=== PATIENT | female | born 1940 | race Caucasian/White ===

== ENCOUNTER 2017-02-17 14:56 | Emergency (ER) | payer OTHER ==
--- NOTE | 2017-02-17 15:11 | Emergency Department Record ---
History of Present Illness - General Chief complaint: Extremity Problem Stated complaint: SWOLLEN,PAINFUL,WARM SPOT L CALF Time Seen by Provider: 02/17/17 15:06 Source: Patient Mode of Arrival: Ambulatory Limitations: No limitations - History of Present Illness Initial comments: 76 yo female presents with left lower leg tenderness and swelling for a couple days. There is warmth and redness as well. She denies and injury. No fevers. No history of recent trauma. No history of DVT or PE. She does have chronic swelling of the legs. No cough, chest pain or shortness of breath. MD Complaint: Extremity pain, Extremity swelling -: Days(s) (2) Location: Left -: Yes Myalgia Radiation: Proximal (calf), Distal Quality: Aching Consistency: Constant Improves with: Nothing Worsens with: Palpation, Weight bearing Associated Symptoms: Denies other symptoms - Related Data Home Medications Medication Instructions Recorded Confirmed Last Taken Amlodipine Besylate 2.5 mg PO DAILY 02/17/17 02/17/17 1 Day Ago ~02/16/17 Calcium Carbonate/Vitamin D3 2 each PO DAILY 02/17/17 02/17/17 1 Day Ago [Calcium 600-Vit D3 500 Softgel] ~02/16/17 Candesartan/Hydrochlorothiazid 1 each PO DAILY 02/17/17 02/17/17 1 Day Ago [Atacand Hct 32-12.5 mg Tab] ~02/16/17 Cholecalciferol (Vitamin D3) 5,000 unit PO DAILY 02/17/17 02/17/17 1 Day Ago [Vitamin D3] ~02/16/17 Fluticasone Propionate [Flonase] 2 spray EACH NARES DAILY 02/17/17 02/17/17 1 Day Ago ~02/16/17 Levothyroxine Sodium [Synthroid] 125 mcg PO DAILY 02/17/17 02/17/17 1 Day Ago ~02/16/17 Multivit-Min/Iron Fum/Folic AC 1 each PO DAILY 02/17/17 02/17/17 1 Day Ago [Yirom-Asbplzy-Ugtxuwyf Tablet] ~02/16/17 Previous Rx's Medication Instructions Recorded Cephalexin [Keflex] 500 mg PO QID #28 cap 02/17/17 Allergies Allergy/AdvReac Type Severity Reaction Status Date / Time codeine Allergy VOMITING Verified 02/17/17 15:12 Physical Exam - General General Appearance: Alert, Oriented x3, Cooperative, No acute distress Limitations: No limitations - Head Head exam: Atraumatic, Normocephalic, Normal inspection - Eye Eye exam: Normal appearance. negative: Conjunctival injection, Periorbital swelling - ENT ENT exam: Normal exam, Mucous membranes moist Ear exam: Normal external inspection Nasal Exam: Normal inspection Mouth exam: Normal external inspection - Neck Neck exam: Normal inspection, Full ROM. negative: Tenderness - Respiratory Respiratory exam: Normal lung sounds bilaterally. negative: Respiratory distress - Cardiovascular Cardiovascular Exam: Regular rate, Normal rhythm, Normal heart sounds - GI/Abdominal GI/Abdominal exam: Soft. negative: Tenderness - Rectal Rectal exam: Deferred - exam: Deferred - Extremities Extremities exam: Calf tenderness, Full ROM, Normal capillary refill, Pedal edema, Tenderness. negative: Normal inspection Image of Full Body: 1 - bilateral swellng that is symmetric, left is warm with mild erythema - Back Back exam: Reports: Normal inspection - Neurological Neurological exam: Alert, Oriented X3 - Psychiatric Psychiatric exam: Normal affect, Normal mood - Skin Skin exam: Dry, Intact, Normal color, Warm Course - Reevaluation(s) Reevaluation #1: 02/17/17 16:02 The labs were reviewed No acute changes on the CBC or CMP. 02/17/17 18:11 The US was read NO DVT of the Lower Extremity Superfical thrombosis noted of the medial calf Medical Decision Making - Lab Data Result diagrams: 02/17/17 15:30 02/17/17 15:30 Disposition Disposition: Discharge Clinical Impression: Superficial thrombophlebitis Qualifiers: Superficial thrombophlebitis-Involved body area: lower extremity Laterality: left Qualified Code(s): I80.02 - Phlebitis and thrombophlebitis of superficial vessels of left lower extremity Disposition: Home, Self-Care Condition: (1) Good Instructions: Superficial Thrombophlebitis (ED) Additional Instructions: You will need to elevate your leg Use a compression stocking Take an anti-inflammatory such as Advil every 6 hours Use warm compresses every 4 hours to stimulate healing and good blood flow Return or see your Doctor Monday for a recheck of your symptoms. Return sooner if worse Keflex every 6 hours as well Prescriptions: Cephalexin [Keflex] 500 mg PO QID #28 cap Referrals: ANDREW CHAN D.O. [DOCTOR OF OSTEOPATH] - [facility] [Provider Group] Forms: Patient Portal Access Time of Disposition: 18:13 Quality - Quality Measures Quality Measures: N/A - Blood Pressure Screening Does Patient Have Any of the Following: No Blood Pressure Classification: Hypertensive Reading Systolic Measurement: 151 Diastolic Measurement: 96 Screening for High Blood Pressure: < Pre-Hypertensive BP, F/U Documented > [ [id number]] Pre-Hypertensive Follow-up Interventions: Referral to alternative/primary care provider.
[2017-02-17 15:41] LABS: BASO % 0.7 % (0-6); EOS % 1.3 % (0-6); GRAN % 72.5 % (47-80); HEMATOCRIT 43.7 % (35.0-47.0); LYMPH % 17.3 % (16-45); MEAN CELL VOLUME 86.7 fl (81-97); MEAN CORPUSCULAR HEMOGLOBIN 27.8 pg (27-33); MEAN PLATELET VOLUME 10.3 fl (7.4-10.4); MONO % 8.2 % (0-9); PLATELET COUNT 342 K/uL (130-400); RED BLOOD COUNT 5.04 M/uL (3.80-5.40); RED CELL DISTRIBUTION WIDTH 14.9 % (11.5-14.5); WHITE BLOOD COUNT W/O DIFF 11.1 K/uL (4.2-12.2)
[2017-02-17 15:52] LABS: INR 0.96; PROTHROMBIN TIME (PATIENT) 10.4 SECONDS (9.5-12.1)
[2017-02-17 15:58] LABS: ALB/GLOB RATIO 1.2 (1.1-1.8); ALBUMIN 4.1 g/dL (4.0-5.0); ALKALINE PHOSPHATASE 108 U/L (35-104); ALT/SGPT 12 U/L (<33); AST/SGOT 19 U/L (10.0-35.0); BLOOD UREA NITROGEN 24 mg/dL (8-23); CREATININE 0.8 mg/dL (0.5-0.9); EST GLOMERULAR FILTRATION RATE > 60 mL/min; GLUCOSE,RANDOM 91 mg/dL (74-109); TOTAL PROTEIN 7.4 g/dL (6.6-8.7)
--- NOTE | 2017-02-18 15:17 | US VENOUS DOPPLER REPORT ---
DATE: 02/17/2017 at 1545. EXAM: VENOUS DOPPLER EXAMINATION OF THE LEFT LOWER EXTREMITY. HISTORY: Pain in the upper medial aspect of the left calf for a couple of days. Swelling and redness. TECHNIQUE: Alcocer scale, color Doppler, and duplex Doppler evaluation of the deep venous structures of the left lower extremity performed from the level of the common femoral vein through the lower leg. COMPARISON: None. FINDINGS: The alcocer scale images demonstrate all deep venous structures to be anechoic. The venous structures from the common femoral vein through the popliteal vein are easily compressible. Normal venous waveforms are noted within these vessels and are augmentable. The deep veins of the left lower leg (anterior and posterior tibial veins and peroneal veins) are visualized and appear patent. The small saphenous vein is noted to compress. Imaging of the medial left calf region, the site of pain and swelling, demonstrates prominence within multiple superficial veins in this region with no evidence of compression nor flow. IMPRESSION: NO EVIDENCE OF DEEP VENOUS THROMBOSIS WITHIN THE LEFT LOWER EXTREMITY. THERE IS , HOWEVER, THROMBOSIS OF SUPERFICIAL VEINS WITHIN THE MEDIAL LEFT CALF AT THE LEVEL OF THE PATIENT'S PAIN AND SWELLING. JOB NUMBER: [id number] [facility]
== END 2017-02-17 18:38 | disposition home or self-care (01) ==
LOC: ER 14:56
DX: I80.02 Phlebitis and thrombophlebitis of superficial vessels of left lower extremity (principal); M79.662 Pain in left lower leg
CPT/HCPCS: 80053; 85025; 85610; 85730; 99283; 99284